=== PATIENT | female | born 1975 | race Two or more races ===

== ENCOUNTER 2017-10-19 16:14 | Emergency (ER) | payer MEDICAID ==
[~2017-10-19] VITALS: Ht 157.5 cm; Wt 59.0 kg
[2017-10-19 22:06] VITALS: BP 110/58
== END 2017-10-19 22:12 | disposition home or self-care (01) ==
LOC: ER 16:20
DX: S60.221A Contusion of right hand, initial encounter (principal); W23.0XXA Caught, crushed, jammed, or pinched between moving objects, initial encounter; Y93.89 Activity, other specified; Y99.8 Other external cause status; Y92.89 Other specified places as the place of occurrence of the external cause
CPT/HCPCS: 73130